=== PATIENT | female | born 1970 | race Caucasian/White ===

== ENCOUNTER 2022-09-18 17:56 | Emergency (ER) | payer OTHER ==
[~2022-09-18] VITALS: Ht 165 cm; Wt 87.0 kg
[2022-09-18 19:11] LABS: BASOPHILS % (AUTO) 0 % (0-10); EOSINOPHILS # (AUTO) 0.2 10^3/uL (0.0-0.3); EOSINOPHILS % (AUTO) 2 % (0-10); HEMATOCRIT 41 % (35-52); HEMOGLOBIN 13.7 g/dL (11.5-16.0); LYMPHOCYTES # (AUTO) 2.9 10^3/uL (1.0-4.0); LYMPHOCYTES % (AUTO) 24 % (12-44); MEAN CORPUSCULAR HEMOGLOBIN 30 pg (25-34); MEAN CORPUSCULAR HGB CONC 34 g/dL (32-36); MEAN CORPUSCULAR VOLUME 88 fL (80-99); MEAN PLATELET VOLUME 9.6 fL (9.0-12.2); MONOCYTES # (AUTO) 0.8 10^3/uL (0.0-1.0); MONOCYTES % (AUTO) 6 % (0-12); NEUTROPHILS # (AUTO) 8.1 10^3/uL (1.8-7.8); NEUTROPHILS % (AUTO) 68 % (42-75); PLATELET COUNT 352 10^3/uL (130-400)
[2022-09-18] MEDS ORDERED: ONDANSETRON 4 MG/2 ML (SDV) Z0FRAN IVP ONE (19:15)
--- NOTE | 2022-09-18 19:25 | ED Cardiac General ---
History of Present Illness General Chief Complaint: Cardiac/General Problems Stated Complaint: BLOOD PRESSURE ISSUES 212/140, SWELLING Nursing Triage Note: PT IS INI CUSTODY AND BEING TRANSPORTED TO [place], [place]. PT HAS HTN BUT HAS NOT TAKEN MEDS FOR A FEW DAYS, HAS SWELLING AND BRITNEY STATES PT HAS BEEN OUT OF IT A LITTLE AND WANTED PT CHECKED OUT. VOMITING IN WAITING RM FROM BEING CAR SICK Source: patient, police Exam Limitations: no limitations History of Present Illness Date Seen by Provider: Sep 18, 2022 Time Seen by Provider: 19:00 Initial Comments This 52-year-old woman presents to the emergency room in the custody of a construction supervisor/carpenter's deputy while being transported from [facility] to [facility] in [place], [place]. She was incarcerated yesterday and has been without her blood pressure medications including lisinopril 20 mg twice daily and hydrochlorothiazide 12.5 mg daily for the past 2 days. Reportedly blood pressure was as high as 212 systolic in the [facility]. After being in route for about 20 minutes she complained of nausea and vomited which she stated was from carsickness. She is also been complaining of fluid retention. The officer is concerned that she seems excessively sleepy at times and not responding appropriately. She has also had some hot flushes. The officers under the impression that she has slurred her words which is a change from the time when she was picked up. Patient has inflammatory changes of the left forearm which she states is from a "spider bite". It has been there for many weeks and is improving. Patient denies any recent drug or alcohol use except for a Xanax 1 week ago. She is a smoker. She denies any other illicit substances. Blood pressure is moderately elevated during my assessment with systolic blood pressure in the 150s. Allergies and Home Medications Allergies Coded Allergies: promethazine (Verified Allergy, Intermediate, Rash, 09/18/22) Opioids - Morphine Analogues (Verified Adverse Reaction, Intermediate, Agitation, 09/18/22) Irritable and angry with opioid medications Patient Home Medication List Home Medication List Reviewed: Yes Cephalexin (Cephalexin) 500 Mg Tablet, 500 MG PO TID Prescribed by: HEIDI HENRY on 09/18/222115 Hydrochlorothiazide (Hydrochlorothiazide) 12.5 Mg Tablet, 12.5 MG PO DAILY Prescribed by: HEIDI HENRY on 09/18/222115 Lisinopril (Lisinopril) 20 Mg Tablet, 20 MG PO BID Prescribed by: HEIDI HENRY on 09/18/222115 Metronidazole (Metronidazole) 500 Mg Tablet, 500 MG PO BID Prescribed by: HEIDI HENRY on 09/18/222115 Review of Systems Review of Systems Constitutional: no symptoms reported EENTM: No Symptoms Reported Respiratory: No Symptoms Reported Cardiovascular: See HPI Gastrointestinal: See HPI Genitourinary: No Symptoms Reported Musculoskeletal: no symptoms reported Skin: no symptoms reported Psychiatric/Neurological: See HPI Endocrine: No Symptoms Reported Hematologic/Lymphatic: No Symptoms Reported Past Ohuynnx-Kilqkf-Nchqvx Hx Patient Social History Tobacco Use?: Yes Tobacco type used: Cigarettes Substance use?: No Alcohol Use?: No Past Medical History Surgery/Hospitalization HX: HTN, SEIZURES, TIA'S, HYST, ISMAEL, TONSILS Surgeries: Yes Gallbladder, Hysterectomy, Tonsillectomy Respiratory: No Cardiac: Yes Hypertension, Syncope Neurological: Yes Stroke : No Reproductive Disorders: No Genitourinary: No Gastrointestinal: No Musculoskeletal: No Endocrine: No HEENT: No Cancer: No Psychosocial: No Integumentary: No Physical Exam Vital Signs Vital Signs - First Documented 09/18/22 18:15 Temp 36.3 Pulse 87 Resp 20 B/P (MAP) 163/105 (124) Pulse Ox 98 O2 Delivery Room Air Capillary Refill : Less Than 3 Seconds Height, Weight, BMI Height: '" Weight: lbs. oz. kg; 31.00 BMI Method: General Appearance: No Apparent Distress, WD/WN HEENT: PERRL/EOMI, Normal ENT Inspection Neck: Normal Inspection; No JVD Respiratory: Lungs Clear, Normal Breath Sounds, No Accessory Muscle Use Cardiovascular: Regular Rate, Rhythm, No Murmur, Other (Trace edema of the hands and lower extremities) Gastrointestinal: Non Tender, Soft; No Distended Extremity: Non Tender, Pedal Edema (Trace), Swelling (Trace) Neurologic/Psychiatric: Alert, Oriented x3, No Motor/Sensory Deficits, Normal Mood/Affect, store host II-XII Norm as Tested, Other (Normal islbll-om-xfxz and xupf-oh-kwqk. No focal deficits appreciated on exam.) Skin: Normal Color, Warm/Dry Progress/Results/Core Measures Results/Orders Lab Results Laboratory Tests Test 09/18/22 19:08 09/18/22 19:47 Range/Units White Blood Count 12.0 H 4.3-11.0 10^3/uL Red Blood Count 4.61 3.80-5.11 10^6/uL Hemoglobin 13.7 11.5-16.0 g/dL Hematocrit 41 35-52 % Mean Corpuscular Volume 88 80-99 fL Mean Corpuscular Hemoglobin 30 25-34 pg Mean Corpuscular Hemoglobin Concent 34 32-36 g/dL Red Cell Distribution Width 13.1 10.0-14.5 % Platelet Count 352 130-400 10^3/uL Mean Platelet Volume 9.6 9.0-12.2 fL Immature Granulocyte % (Auto) 0 % Neutrophils (%) (Auto) 68 42-75 % Lymphocytes (%) (Auto) 24 12-44 % Monocytes (%) (Auto) 6 0-12 % Eosinophils (%) (Auto) 2 0-10 % Basophils (%) (Auto) 0 0-10 % Neutrophils # (Auto) 8.1 H 1.8-7.8 10^3/uL Lymphocytes # (Auto) 2.9 1.0-4.0 10^3/uL Monocytes # (Auto) 0.8 0.0-1.0 10^3/uL Eosinophils # (Auto) 0.2 0.0-0.3 10^3/uL Basophils # (Auto) 0.0 0.0-0.1 10^3/uL Immature Granulocyte # (Auto) 0.0 0.0-0.1 10^3/uL Sodium Level 139 135-145 MMOL/L Potassium Level 4.1 3.6-5.0 MMOL/L Chloride Level 106 98-107 MMOL/L Carbon Dioxide Level 22 21-32 MMOL/L Anion Gap 11 5-14 MMOL/L Blood Urea Nitrogen 12 7-18 MG/DL Creatinine 0.86 0.60-1.30 MG/DL Estimat Glomerular Filtration Rate 82 BUN/Creatinine Ratio 14 Glucose Level 89 70-105 MG/DL Calcium Level 9.0 8.5-10.1 MG/DL Corrected Calcium 9.2 8.5-10.1 MG/DL Magnesium Level 2.1 1.6-2.4 MG/DL Total Bilirubin 0.4 0.1-1.0 MG/DL Aspartate Amino Transf (AST/SGOT) 16 5-34 U/L Alanine Aminotransferase (ALT/SGPT) 17 0-55 U/L Alkaline Phosphatase 98 40-136 U/L Total Protein 6.9 6.4-8.2 GM/DL Albumin 3.8 3.2-4.5 GM/DL TSH [place] Testing 0.80 0.35-4.94 UIU/ML Urine Color YELLOW Urine Clarity CLEAR Urine pH 6.0 5-9 Urine Specific [place] >=1.030 1.016-1.022 Urine Protein NEGATIVE NEGATIVE Urine Glucose (UA) NEGATIVE NEGATIVE Urine Ketones NEGATIVE NEGATIVE Urine Nitrite NEGATIVE NEGATIVE Urine Bilirubin NEGATIVE NEGATIVE Urine Urobilinogen 0.2 < = 1.0 MG/DL Urine Leukocyte Esterase NEGATIVE NEGATIVE Urine RBC (Auto) NEGATIVE NEGATIVE Urine RBC 2-5 H /HPF Urine WBC RARE /HPF Urine Squamous Epithelial Cells 5-10 /HPF Urine Crystals NONE /LPF Urine Bacteria FEW H /HPF Urine Casts NONE /LPF Urine Mucus MODERATE H /LPF Urine Trichomonas FEW H /HPF Urine Culture Indicated YES Urine Opiates Screen NEGATIVE NEGATIVE Urine Oxycodone Screen NEGATIVE NEGATIVE Urine Methadone Screen NEGATIVE NEGATIVE Urine Propoxyphene Screen NEGATIVE NEGATIVE Urine Barbiturates Screen NEGATIVE NEGATIVE Ur Tricyclic Antidepressants Screen NEGATIVE NEGATIVE Urine Phencyclidine Screen NEGATIVE NEGATIVE Urine Amphetamines Screen POSITIVE H NEGATIVE Urine Methamphetamines Screen POSITIVE H NEGATIVE Urine Benzodiazepines Screen POSITIVE H NEGATIVE Urine Cocaine Screen NEGATIVE NEGATIVE Urine Cannabinoids Screen NEGATIVE NEGATIVE My Orders Orders - HEIDI ROMAN MD Cbc With Automated Diff (09/18/22 19:05) Comprehensive Metabolic Panel (09/18/22 19:05) Magnesium (09/18/22 19:05) Thyroid Analyzer (09/18/22 19:05) Ua Culture If Indicated (09/18/22 19:05) Ed Iv/Invasive Line Start (09/18/22 19:05) Ekg Tracing (09/18/22 19:05) Monitor-Rhythm Ecg Trace Only (09/18/22 19:05) Ondansetron Injection (Zofran Injectio (09/18/22 19:15) Lisinopril Tablet (Zestril Tablet) (09/18/22 19:30) Hydrochlorothiazide Cap/Tablet (Hctz Cap (09/18/22 19:30) Drug Screen Stat (Urine) (09/18/22 19:42) Urine Culture (09/18/22 19:47) Metronidazole Tablet (Flagyl Tablet) (09/18/22 21:00) Cephalexin Capsule (Keflex Capsule) (09/18/22 21:00) Medications Given in ED Current Medications Medications Dose Ordered Sig/Kateryna Route Start Time Stop Time Status Last Admin Dose Admin Hydrochlorothiazide 12.5 mg ONCE ONCE PO 09/18/22 19:30 09/18/22 19:31 DC 09/18/22 19:40 12.5 MG Lisinopril 20 mg ONCE ONCE PO 09/18/22 19:30 09/18/22 19:31 DC 09/18/22 19:40 20 MG Vital Signs/I&O 09/18/22 09/18/22 18:15 21:25 Temp 36.3 Pulse 87 88 Resp 20 18 B/P (MAP) 163/105 (124) 152/100 Pulse Ox 98 96 O2 Delivery Room Air Room Air Blood Pressure Mean: 124 Progress Progress Note : Progress Note Patient was interviewed and examined. training systems officer was also interviewed. Exam was relatively unremarkable. Blood pressure was trending downward. Labs were evaluated including CBC, CMP, troponin, magnesium, and thyroid analyzer. All labs were reviewed in their entirety. There is a minimal leukocytosis, but they were otherwise unremarkable. EKG was unremarkable with no arrhythmia or ST elevation. Urinalysis demonstrated bacteria and trichomonas. Toxicology screen revealed methamphetamine. Metronidazole and Keflex were prescribed for the trichomonas and urinary tract infection. See discharge instructions for further discussion. Blood pressure was acceptable prior to discharge. Patient had received lisinopril and hydrochlorothiazide per her usual dosing during the ER stay. Nausea was treated with Zofran. Patient was discharged in the custody of law enforcement. Initial ECG Impression Date: Sep 18, 2022 Initial ECG Impression Time: 18:44 Initial ECG Rate: 90 Initial ECG Rhythm: Normal Sinus Initial ECG Intervals: Normal Initial ECG Impression: Normal Comment Normal sinus rhythm with no ST elevation or depression. No abnormal intervals or axis deviation. Departure Impression Primary Impression: Hypertension Qualified Codes: I10 - Essential (primary) hypertension Additional Impressions: Urinary tract infection Qualified Codes: N39.0 - Urinary tract infection, site not specified Positive urine drug screen Urogenital infection by trichomonas vaginalis Nausea & vomiting Qualified Codes: R11.2 - Nausea with vomiting, unspecified Disposition: HOME, SELF-CARE Condition: Improved Departure-Patient Inst. Decision time for Depature: 21:12 Patient Instructions: High Blood Pressure ED, Trichomoniasis, Urinary Tract Infection, Adult (DC) Add. Discharge Instructions: Restart your blood pressure medication and have your blood pressure monitored by the diagnostic medical sonographer in the [facility]. Complete antibiotics as prescribed for urinary tract infection and trichomonas infection. The diagnostic medical sonographer should contact [facility] on to obtain culture results. Partner should be contacted to obtain treatment as well. Drink plenty of clear liquids to stay well-hydrated. Return to care if there are worsening symptoms despite following instructions. All discharge instructions reviewed with patient and/or family. Voiced understanding. Scripts Cephalexin (Cephalexin) 500 Mg Tablet 500 MG PO TID, #20 TAB Prov: HEIDI ROMAN MD 09/18/22 Hydrochlorothiazide (Hydrochlorothiazide) 12.5 Mg Tablet 12.5 MG PO DAILY, #7 TAB Prov: HEIDI ROMAN MD 09/18/22 Lisinopril (Lisinopril) 20 Mg Tablet 20 MG PO BID, #14 TAB Prov: HEIDI ROMAN MD 09/18/22 Metronidazole (Metronidazole) 500 Mg Tablet 500 MG PO BID, #14 TAB 0 Refills Prov: HEIDI ROMAN MD 09/18/22 Copy Copies To 1: [facility]HEIDI TRACY MD Sep 18, 2022 19:25
[2022-09-18] MEDS ORDERED: lisINopril 20 MG (PRINIVIL) TABLET PO ONE (19:30)
[2022-09-18] MEDS ORDERED: HydroCHLOROthiazide CAP/TABLET 12.5 MG TAB PO ONE (19:30)
[2022-09-18 19:46] LABS: ALBUMIN 3.8 GM/DL (3.2-4.5); BILIRUBIN,TOTAL 0.4 MG/DL (0.1-1.0); CREATININE SERUM 0.86 MG/DL (0.60-1.30); MAGNESIUM 2.1 MG/DL (1.6-2.4); POTASSIUM 4.1 MMOL/L (3.6-5.0); TOTAL PROTEIN 6.9 GM/DL (6.4-8.2)
[2022-09-18 19:54] LABS: BILIRUBIN,URINE NEGATIVE (NEGATIVE); CLARITY,URINE CLEAR; COLOR,URINE YELLOW; GLUCOSE, URINE (UA) NEGATIVE (NEGATIVE); KETONES,URINE NEGATIVE (NEGATIVE); LEUKOCYTE ESTERASE ,URINE NEGATIVE (NEGATIVE); NITRITE,URINE NEGATIVE (NEGATIVE); PROTEIN,URINE NEGATIVE (NEGATIVE)
[2022-09-18 20:06] LABS: TSH (THYROID ANALYZER) 0.8 UIU/ML (0.35-4.94)
[2022-09-18 20:07] LABS: BACTERIA,URINE FEW /HPF; TRICHOMONAS,URINE FEW /HPF; WBC,URINE RARE /HPF
[2022-09-18 20:30] LABS: AMPHETAMINE SCREEN, URINE POSITIVE (NEGATIVE); BARBITURATE SCREEN URINE NEGATIVE (NEGATIVE); BENZODIAZEPINES SCREEN URINE POSITIVE (NEGATIVE); CANNABINOID SCREEN, URINE NEGATIVE (NEGATIVE); COCAINE SCREEN URINE NEGATIVE (NEGATIVE); METHADONE STAT NEGATIVE (NEGATIVE); OPIATE SCREEN URINE NEGATIVE (NEGATIVE); OXYCODONE STAT NEGATIVE (NEGATIVE); PROPOXYPHENE STAT NEGATIVE (NEGATIVE); TRICYCLIC ANTIDEPRESSANTS SCRE NEGATIVE (NEGATIVE)
[2022-09-18] MEDS ORDERED: metroNIDAZOLE 500 MG (FLAGYL) TAB PO ONE (21:00)
[2022-09-18] MEDS ORDERED: CEPHALEXIN 250 MG (KEFLEX) CAP PO ONE (21:00)
[2022-09-18] MEDS ORDERED: LISI20TA26 PO (21:16)
[2022-09-18] MEDS ORDERED: HYDR12.56 PO (21:16)
[2022-09-18] MEDS ORDERED: METR-145 PO (21:16)
[2022-09-18] MEDS ORDERED: CEPH500T PO (21:16)
[2022-09-18 21:25] VITALS: BP 152/100
== END 2022-09-18 21:26 | disposition home or self-care (01) ==
LOC: ER 17:59
DX: I10 Essential (primary) hypertension (principal); N39.0 Urinary tract infection, site not specified; A59.01 Trichomonal vulvovaginitis; R82.5 Elevated urine levels of drugs, medicaments and biological substances; F17.210 Nicotine dependence, cigarettes, uncomplicated; Z28.310 Unvaccinated for COVID-19
CPT/HCPCS: 36415; 80053; 80306; 81000; 83735; 84443; 85025; 87088; 93005; 93041